=== PATIENT | female | born 1975 | race Caucasian/White ===

== ENCOUNTER 2024-08-16 15:39 | Emergency (ER) | payer MEDICAID ==
[~2024-08-16] VITALS: Ht 160 cm; Wt 70.0 kg
[2024-08-16 15:44] VITALS: BP 139/70; PULSE 75; RESP 16; TEMP 36.5; O2SAT 100
[2024-08-16 16:32] LABS: CHLORIDE 107 mEq/L (98-107); SODIUM 144 mEq/L (136-145)
[2024-08-16 16:33] LABS: CALCIUM 9.4 mg/dL (8.7-10.4); CARBON DIOXIDE 27 mEq/L (21-32)
[2024-08-16 16:37] LABS: HCG SCREEN NEGATIVE
[2024-08-16 16:38] LABS: BASOPHILS % 0.4 % (0.0-2.0); CREATININE 0.7 mg/dL (0.6-1.0); GLUCOSE 108 mg/dL (70-105); HEMATOCRIT. 44.7 % (36.0-48.0); HEMOGLOBIN. 15.1 g/dL (12.0-16.0); LYMPHOCYTES % 11.5 % (20.0-50.0); MEAN CORPUSCULAR HEMOGLOBIN 30.9 pg (28.0-32.0); MEAN CORPUSCULAR HGB CONC 33.8 g/dL (31.0-37.0); MEAN CORPUSCULAR VOLUME 91.4 fL (81.0-99.0); MEAN PLATELET VOLUME 10.5 fl (7.4-10.4); MONOCYTES % 5.6 % (2.0-8.0); NEUTROPHILS % 82.5 % (40.0-76.0); PLATELET 213 x1000/uL (130-400); RED BLOOD CELL COUNT 4.89 mill/uL (4.2-5.4); RED CELL DISTRIBUTION WIDTH 13.7 % (11.6-14.6); UREA NITROGEN BLOOD 14 mg/dL (9-23); WHITE BLOOD COUNT 10.5 x1000/uL (4.5-11.0)
[2024-08-16 16:40] LABS: ALANINE AMINOTRANSFERASE 14 IU/L (10-49); ALBUMIN 4.3 g/dL (3.2-4.8); ASPARTATE AMINOTRANSFERASE 22 IU/L (<34); BILIRUBIN DIRECT 0.1 mg/dL (<=3.0); BILIRUBIN TOTAL 0.5 mg/dL (0.1-1.0); PROTEIN TOTAL 7.6 g/dL (6.0-8.3)
[2024-08-16 16:49] LABS: POTASSIUM 2.8 mEq/L (3.5-5.1); TROPONIN I HIGH SENSITIVITY < 4 ng/L (3.0-34)
[2024-08-16] MEDS: POTASSIUM CHLORIDE 20MEQ/PACKET PO NR (18:15)
== END 2024-08-16 18:56 | disposition home or self-care (01) ==
LOC: ER 16:04
DX: E87.6 Hypokalemia (principal); R10.30 Lower abdominal pain, unspecified; I10 Essential (primary) hypertension; K59.09 Other constipation
CPT/HCPCS: 36415; 80048; 80076; 84484; 84703; 85025; 99283